=== PATIENT | male | born 1965 | race Caucasian/White ===

== ENCOUNTER → 2021-11-25 | Outpatient (CLI) | payer OTHER ==
[~2021-11-25] MED LIST: AMBIEN5 MG PO; ASPIR-LOW81 MG PO; BUPROPION XL300 MG PO; CARVEDILOL12.5 MG PO; COMPLETE MULTI1 EACH PO; FISH OIL 1,0001 EACH PO; FOLIC ACID 1 MG1 MG PO; GLUCOPHAGE500 MG PO; K-DUR TAB 20 M20 MEQ PO; LIPITOR TAB 2020 MG PO; PANTOPRAZOLE SO40 MG PO; PROCARDIA XL60 MG PO; PROTONIX40 MG PO; VITAMIN B-1250 MC1 PO
== END ==
LOC: WCC 07:35
DX: I83.019 Varicose veins of right lower extremity with ulcer of unspecified site (principal); I83.029 Varicose veins of left lower extremity with ulcer of unspecified site; E11.622 Type 2 diabetes mellitus with other skin ulcer; L97.821 Non-pressure chronic ulcer of other part of left lower leg limited to breakdown of skin; L97.811 Non-pressure chronic ulcer of other part of right lower leg limited to breakdown of skin; R60.1 Generalized edema; I11.0 Hypertensive heart disease with heart failure; I50.9 Heart failure, unspecified; E11.65 Type 2 diabetes mellitus with hyperglycemia; E11.40 Type 2 diabetes mellitus with diabetic neuropathy, unspecified; I25.10 Atherosclerotic heart disease of native coronary artery without angina pectoris; J44.9 Chronic obstructive pulmonary disease, unspecified; Z86.16 Personal history of COVID-19; Z88.0 Allergy status to penicillin

== ENCOUNTER → 2021-12-03 | Outpatient (CLI) | payer OTHER | LOC: WCC 07:36 | DX: I87.2 Venous insufficiency (chronic) (peripheral) (principal); L97.822 Non-pressure chronic ulcer of other part of left lower leg with fat layer exposed; L97.812 Non-pressure chronic ulcer of other part of right lower leg with fat layer exposed; I83.019 Varicose veins of right lower extremity with ulcer of unspecified site; I83.029 Varicose veins of left lower extremity with ulcer of unspecified site; E11.622 Type 2 diabetes mellitus with other skin ulcer; R60.1 Generalized edema; I11.0 Hypertensive heart disease with heart failure; I50.9 Heart failure, unspecified; E11.65 Type 2 diabetes mellitus with hyperglycemia; E11.40 Type 2 diabetes mellitus with diabetic neuropathy, unspecified; I25.10 Atherosclerotic heart disease of native coronary artery without angina pectoris; J44.9 Chronic obstructive pulmonary disease, unspecified; Z86.16 Personal history of COVID-19; Z88.0 Allergy status to penicillin ==

== ENCOUNTER → 2021-12-11 | Outpatient (CLI) | payer OTHER | LOC: WCC 07:27 | DX: I87.2 Venous insufficiency (chronic) (peripheral) (principal); I83.029 Varicose veins of left lower extremity with ulcer of unspecified site; I83.019 Varicose veins of right lower extremity with ulcer of unspecified site; E11.622 Type 2 diabetes mellitus with other skin ulcer; R60.1 Generalized edema; I11.0 Hypertensive heart disease with heart failure; I50.9 Heart failure, unspecified; E11.65 Type 2 diabetes mellitus with hyperglycemia; E11.40 Type 2 diabetes mellitus with diabetic neuropathy, unspecified; I25.10 Atherosclerotic heart disease of native coronary artery without angina pectoris; J44.9 Chronic obstructive pulmonary disease, unspecified; Z86.16 Personal history of COVID-19; Z88.0 Allergy status to penicillin ==

== ENCOUNTER → 2021-12-23 | Outpatient (CLI) | payer OTHER | LOC: WCC 07:28 | DX: Z01.812 Encounter for preprocedural laboratory examination (principal) | CPT/HCPCS: G0463 ==